=== PATIENT | female | born 1945 | race Caucasian/White ===

== ENCOUNTER → 2017-02-12 | Outpatient (CLI) | payer MEDICARE ==
[2017-02-12 10:01] LABS: HDL CHOLESTEROL 45.3 MG/DL (40.0-60.0)
== END ==
LOC: PLAB 06:49
PROVIDERS: ATTEND Family Medicine
DX: E78.5 Hyperlipidemia, unspecified (principal); E03.2 Hypothyroidism due to medicaments and other exogenous substances; Z13.1 Encounter for screening for diabetes mellitus; Z68.26 Body mass index [BMI] 26.0-26.9, adult
CPT/HCPCS: 36415; 80061; 82947; 84443; 84450; 84460

== ENCOUNTER → 2017-07-20 | Outpatient (CLI) | payer MEDICARE ==
[~2017-07-20] MED LIST: CITRTAB7 PO; LEVO88TA2 PO; LOVA20TA PO
[2017-07-20 14:22] LABS: HEMATOCRIT 44.7 % (35.0-46.0); MEAN CELL VOLUME 85.8 FL (80.0-100.0); MEAN CORPUSCULAR HEMOGLOBIN 27.8 PG (27.0-34.0); MEAN CORPUSCULAR HGB CONC 32.4 % (32.0-36.0); PLATELET COUNT 178 TH/MM3 (150-450); RED BLOOD COUNT 5.22 MIL/MM3 (4.00-5.30); REVIEW FLAG FINAL; WHITE BLOOD COUNT 8.8 TH/MM3 (4.0-11.0)
--- NOTE | 2017-07-20 14:27 | RADRPT ---
EXAM DATE/TIME: 07/20/2017 14:01 [facility] COMPARISON: No previous studies available for comparison. INDICATIONS : Pre op to evaluate for pneumothroax, pneumonia, or comminicable diseases. MEDICAL HISTORY : None. SURGICAL HISTORY : None. ENCOUNTER: Initial ACUITY: 1 day PAIN SCORE: 0/10 LOCATION: Bilateral chest FINDINGS: PA and lateral views of the chest demonstrate the lungs to be symmetrically aerated without evidence of mass, infiltrate or effusion. The cardiomediastinal contours are unremarkable. Osseous structure s are intact. CONCLUSION: 1. No acute cardiopulmonary findings. Yobani Almonte MD on July 20, 2017 at 14:21 Board Certified Radiologist. This report was verified electronically.
[2017-07-20 14:30] LABS: BLOOD, URINE NEG (NEG); GLUCOSE,URINE NEG (NEG); KETONE, URINE NEG (NEG); NITRITE,URINE NEG (NEG); PH, URINE 6.5 (5.0-8.5); TRANSITIONAL EPI CELLS, URINE <1 /hpf; URINE COLOR LIGHT-YELLOW (YELLW/STRAW)
[2017-07-20 14:45] LABS: ANION GAP 6 MEQ/L (5-15); AST (GOT) 16 U/L (15-37); BICARBONATE 29.5 MEQ/L (21.0-32.0); BLOOD UREA NITROGEN 13 MG/DL (7-18); CHLORIDE 105 MEQ/L (98-107); GLOMERULAR FILTRATION RATE 71 ML/MIN (>89); GLUCOSE,FASTING 97 MG/DL (74-99); POTASSIUM 4.5 MEQ/L (3.5-5.1); SODIUM (NA) 140 MEQ/L (136-145)
[2017-07-20 14:46] LABS: ALT (GPT) 23 U/L (10-53)
[2017-07-20 14:48] LABS: ALKALINE PHOSPHATASE 88 U/L (45-117); TOTAL BILIRUBIN ADULT 0.4 MG/DL (0.2-1.0)
--- NOTE | 2017-07-21 14:16 | EKG ---
Date Performed: 07/20/2017 Time Performed: 13:15:57 PTAGE: 72 years EKG: Sinus rhythm NORMAL ECG NO PREVIOUS TRACING DOCTOR: Chaparro Silva Interpretating Date/Time 07/21/2017 14:12:16
== END ==
LOC: CPRE 12:53
PROVIDERS: ATTEND Obstetrics & Gynecology
DX: Z01.812 Encounter for preprocedural laboratory examination (principal); Z01.810 Encounter for preprocedural cardiovascular examination; Z01.811 Encounter for preprocedural respiratory examination; N95.0 Postmenopausal bleeding; D06.9 Carcinoma in situ of cervix, unspecified; R87.613 High grade squamous intraepithelial lesion on cytologic smear of cervix (HGSIL)
CPT/HCPCS: 36415; 71020; 80053; 81001; 85027; 93005

== ENCOUNTER → 2017-07-29 | Day surgery (SDC) | payer MEDICARE ==
[~2017-07-29] VITALS: Ht 167.6 cm; Wt 71.9 kg
[~2017-07-29] MED LIST changes: +ACETAMINOPHEN 1000 MG/100 ML 0 ML IV ONE; +ACETAMINOPHEN 1000 MG/100 ML 100 ML IV ONE; +CHLORHEXIDINE GLUCONATE 2 % 1 PACK (2 CLOTHS) TOPICAL PRN; +DEXAMETHASONE SOD PHOS 4 MG/ML VIAL IV ONE; +DEXAMETHASONE SOD PHOS 4 MG/ML VIAL ONE; +DO NOT ADM ANY ANTICOAGULANT DRUGS PRN; +FAMOTIDINE 20 MG/2 ML VIAL ONE; +INSULIN HUMAN REGULAR 1,000 UNITS/10 ML VIAL SQ PRN; +KETOROLAC TROMETHAMINE 60 MG/2 ML (IM) VIAL IM ONE; +LACTATED RINGER'S 1000 ML INJ 1,000 ML IV ONE; +LACTATED RINGER'S 1000 ML IV PRN; +LIDOCAINE HCL 1% PF 5 ML AMPULE OTHER ONE; +METOPROLOL TARTRATE 25 MG TAB PO PRN; +MIDAZOLAM HCL 2 MG/2 ML VIAL IV ONE; +ONDANSETRON HCL 4 MG/2 ML VIAL IV PUSH ONE; +POVIDONE IODINE 5% (ANTISEPSIS KIT) 4 APPLICATIONS EACH NARE PRN; +PROPOFOL 200 MG/20 ML AMP IV ONE; +SODIUM CHLORID 0.9% 500 ML IV PRN; +ePHEDrine/NS 25 MG/5 ML SYR IV ONE
[2017-07-29 12:10] VITALS: BP 136/69; PULSE 64; RESP 18; TEMP 97.5; O2SAT 96
--- NOTE | 2017-07-29 16:58 | MP ---
cc: GLADYS MOYER DATE OF SURGERY: 07/29/2017 PREOPERATIVE DIAGNOSIS: Severe dysplasia of the endocervix. Postmenopausal bleeding. POSTOPERATIVE DIAGNOSIS: Severe dysplasia of the endocervix. Postmenopausal bleeding. OPERATION: Examination under anesthesia, cone biopsy, dilation and curettage of the uterus. ANESTHESIA: General endotracheal intubation. SURGEON: Julia Moyer MD. FINDINGS: Examination under anesthesia, the vagina was atrophic. The cervix was small and atrophic. The uterus and adnexa were not palpable. The cone biopsy was done with good results. We got a nice circumferential cone. ECC and D&C followed with a small amount of tissue. My suspicion for pathology is low. COMPLICATIONS: None. COUNTS: Correct. ESTIMATED BLOOD LOSS: 25 cc FLUIDS: Crystalloid. DISPOSITION: The patient tolerated the procedure well and went to the Recovery Room in good condition. DESCRIPTION OF PROCEDURE: Patient was taken to the operating room identified by name band and verbally, given a general anesthetic, carefully placed in dorsal lithotomy position, prepped on the outside only and draped in the usual sterile fashion for vaginal surgery. A time-out was taken and examination under anesthesia was carried out and the speculum was inserted. Very carefully we cleaned out the vagina with Betadine and a cotton ball not to damage the surface of the cervix. Once this had been accomplished two lateral stay sutures were placed with 2-0 Vicryl and the cone biopsy was then taken using 11 blade starting at 6 o'clock and going circumferentially around to noon bilaterally and the cone was removed with scissors without difficulty. ECC was then done with good firm curettage. The cervix was then serially dilated without difficulty and a D&C was performed with a #1 sharp curet. There was very little tissue. My suspicion for pathology was very low. At this point we cauterized the cone bed with the Bovie and bleeding was minimal at this time. A baseball suture was placed around the cervix and bleeding was minimal at this point. A piece of Surgicel was then placed into the cone bed and the Surgicel was tied into the cone beds without difficulty. The patient tolerated the procedure well and went to the Recovery Room in good condition. RMD ROSS Melgoza/KEVEN /1:09 PM /4:02 PM
== END | disposition home or self-care (01) ==
LOC: HSDC 07:39
PROVIDERS: ATTEND Obstetrics & Gynecology
DX: D06.9 Carcinoma in situ of cervix, unspecified (principal); N95.0 Postmenopausal bleeding
CPT/HCPCS: 00940; 57520; 88305; 88307; J0131; J1100; J1885; J2250; J2405; J3010; J7120

== ENCOUNTER → 2017-08-20 | Outpatient (CLI) | payer MEDICARE ==
[~2017-08-20] MED LIST changes: -ACETAMINOPHEN 1000 MG/100 ML 0 ML IV ONE; -ACETAMINOPHEN 1000 MG/100 ML 100 ML IV ONE; -CHLORHEXIDINE GLUCONATE 2 % 1 PACK (2 CLOTHS) TOPICAL PRN; -DEXAMETHASONE SOD PHOS 4 MG/ML VIAL IV ONE; -DEXAMETHASONE SOD PHOS 4 MG/ML VIAL ONE; -DO NOT ADM ANY ANTICOAGULANT DRUGS PRN; -FAMOTIDINE 20 MG/2 ML VIAL ONE; -INSULIN HUMAN REGULAR 1,000 UNITS/10 ML VIAL SQ PRN; -KETOROLAC TROMETHAMINE 60 MG/2 ML (IM) VIAL IM ONE; -LACTATED RINGER'S 1000 ML INJ 1,000 ML IV ONE; -LACTATED RINGER'S 1000 ML IV PRN; -LIDOCAINE HCL 1% PF 5 ML AMPULE OTHER ONE; -METOPROLOL TARTRATE 25 MG TAB PO PRN; -MIDAZOLAM HCL 2 MG/2 ML VIAL IV ONE; -ONDANSETRON HCL 4 MG/2 ML VIAL IV PUSH ONE; -POVIDONE IODINE 5% (ANTISEPSIS KIT) 4 APPLICATIONS EACH NARE PRN; -PROPOFOL 200 MG/20 ML AMP IV ONE; -SODIUM CHLORID 0.9% 500 ML IV PRN; -ePHEDrine/NS 25 MG/5 ML SYR IV ONE
[2017-08-20 10:42] LABS: HDL CHOLESTEROL 48.3 MG/DL (40.0-60.0)
== END ==
LOC: PLAB 06:51
PROVIDERS: ATTEND Family Medicine
DX: E78.5 Hyperlipidemia, unspecified (principal); E03.2 Hypothyroidism due to medicaments and other exogenous substances
CPT/HCPCS: 36415; 80061; 84443; 84450; 84460

== ENCOUNTER → 2018-02-16 | Outpatient (CLI) | payer MEDICARE ==
[2018-02-16 10:56] LABS: CHOLESTEROL/ HDL RATIO 3.46 RATIO; HDL CHOLESTEROL 44.7 MG/DL (40.0-60.0)
== END ==
LOC: PLAB 06:39
PROVIDERS: ATTEND Family Medicine
DX: E78.5 Hyperlipidemia, unspecified (principal); E03.2 Hypothyroidism due to medicaments and other exogenous substances; Z12.12 Encounter for screening for malignant neoplasm of rectum; Z12.11 Encounter for screening for malignant neoplasm of colon; Z13.1 Encounter for screening for diabetes mellitus; Z68.26 Body mass index [BMI] 26.0-26.9, adult
CPT/HCPCS: 36415; 80061; 82947; 84443; 84450; 84460

== ENCOUNTER → 2018-03-01 | Outpatient (CLI) | payer MEDICARE ==
[2018-03-01 13:38] LABS: BACTERIA, URINE RARE /hpf; BILIRUBIN, URINE NEG (NEG); BLOOD, URINE NEG (NEG); GLUCOSE,URINE NEG (NEG); KETONE, URINE NEG (NEG); MUCUS URINE FEW /lpf (OCC); NITRITE,URINE NEG (NEG); SQUAMOUS EPITHELIAL CELL URINE <1 /hpf (0-5); URINE COLOR LIGHT-YELLOW (YELLW/STRAW); URINE LEUKOCYTE ESTERASE NEG (NEG)
[2018-03-01 13:48] LABS: HEMOGLOBIN 14.6 GM/DL (11.6-15.3); MEAN CORPUSCULAR HEMOGLOBIN 28.4 PG (27.0-34.0); MEAN CORPUSCULAR HGB CONC 33.8 % (32.0-36.0); PLATELET COUNT 209 TH/MM3 (150-450); RED BLOOD COUNT 5.12 MIL/MM3 (4.00-5.30); RED CELL DISTRIBUTION WIDTH 13.5 % (11.6-17.2); WHITE BLOOD COUNT 8.2 TH/MM3 (4.0-11.0)
[2018-03-01 14:01] LABS: ALBUMIN 4.1 GM/DL (3.4-5.0); AST (GOT) 18 U/L (15-37); BICARBONATE 27.9 MEQ/L (21.0-32.0); BLOOD UREA NITROGEN 15 MG/DL (7-18); CALCIUM 9.6 MG/DL (8.5-10.1); CHLORIDE 105 MEQ/L (98-107); CREATININE 0.86 MG/DL (0.50-1.00); GLOMERULAR FILTRATION RATE 65 ML/MIN (>89); GLUCOSE,FASTING 102 MG/DL (74-99); SODIUM (NA) 142 MEQ/L (136-145)
[2018-03-01 14:02] LABS: ALT (GPT) 24 U/L (10-53)
[2018-03-01 14:04] LABS: ALKALINE PHOSPHATASE 88 U/L (45-117); TOTAL BILIRUBIN ADULT 0.4 MG/DL (0.2-1.0); TOTAL PROTEIN 7.7 GM/DL (6.4-8.2)
--- NOTE | 2018-03-01 14:17 | RADRPT ---
EXAM DATE/TIME: 03/01/2018 13:57 [facility] COMPARISON: CHEST PA & LAT, July 20, 2017, 14:01. INDICATIONS : Preop Hysterectomy Evaluate for pneumonia, pneumothorax and communicable disease MEDICAL HISTORY : None. SURGICAL HISTORY : None. ENCOUNTER: Initial ACUITY: 1 day PAIN SCORE: 0/10 LOCATION: chest FINDINGS: Frontal and lateral views of the chest demonstrate a normal-sized cardiac silhouette with calcificati on of the aorta. No effusion, consolidation, or pneumothorax is identified. Bones and soft tissues de monstrate no acute finding. There are degenerative changes throughout the thoracic and lumbar spine w ith a levoscoliosis of the lumbar spine. CONCLUSION: 1. No acute cardiopulmonary abnormality is identified. 2. Levoscoliosis of the lumbar spine. Dylan Swartz MD on March 01, 2018 at 14:14 Board Certified Radiologist. This report was verified electronically.
--- NOTE | 2018-03-01 16:32 | EKG ---
Date Performed: 03/01/2018 Time Performed: 13:23:30 PTAGE: 72 years EKG: Sinus rhythm INDETERMINATE AXIS No significant change from prior electrocardiogram. DOCTOR: James Rubin Interpretating Date/Time 03/01/2018 16:31:17
== END ==
LOC: CPRE 12:52
PROVIDERS: ATTEND Obstetrics & Gynecology
DX: Z01.812 Encounter for preprocedural laboratory examination (principal); Z01.811 Encounter for preprocedural respiratory examination; Z01.810 Encounter for preprocedural cardiovascular examination; D06.9 Carcinoma in situ of cervix, unspecified
CPT/HCPCS: 36415; 71046; 80053; 81001; 85027; 93005

== ENCOUNTER 2018-03-10 08:48 | Observation (INO) | payer MEDICARE ==
[~2018-03-10] VITALS: Ht 167.6 cm; Wt 72.4 kg
[2018-03-10] MEDS ORDERED: LACTATED RINGER'S 1000 ML IV PRN (09:30)
[2018-03-10] MEDS ORDERED: POVIDONE IODINE 5% (ANTISEPSIS KIT) 4 APPLICATIONS EACH NARE PRN (09:30)
[2018-03-10] MEDS ORDERED: CHLORHEXIDINE GLUCONATE 2 % 1 PACK (2 CLOTHS) TOPICAL PRN (09:30)
[2018-03-10] MEDS ORDERED: SODIUM CHLORID 0.9% 500 ML IV PRN (09:30)
[2018-03-10] MEDS ORDERED: METOPROLOL TARTRATE 25 MG TAB PO PRN (09:30)
[2018-03-10] MEDS ORDERED: GLYCOPYRROLATE 1 MG/5 ML SYRINGE IV PUSH ONE (10:00)
[2018-03-10] MEDS ORDERED: DEXAMETHASONE SOD PHOS 4 MG/ML VIAL IV ONE (10:00)
[2018-03-10] MEDS ORDERED: LIDOCAINE HCL 1% PF 5 ML SYRINGE OTHER ONE (10:00)
[2018-03-10] MEDS ORDERED: ePHEDrine/NS 25 MG/5 ML SYRINGE IV ONE (10:00)
[2018-03-10] MEDS ORDERED: PROPOFOL 200 MG/20 ML AMP IV ONE (10:00)
[2018-03-10] MEDS ORDERED: ROCURONIUM INJ 50 MG/5 ML SYRINGE IV PUSH ONE (10:00)
[2018-03-10] MEDS ORDERED: NEOSTIGMINE 5 MG/5 ML SYRINGE IV PUSH ONE (10:00)
[2018-03-10] MEDS ORDERED: PHENYLEPH/NS 1000 MCG/10 ML SYR IV ONE (10:00)
[2018-03-10] MEDS ORDERED: ONDANSETRON HCL 4 MG/2 ML VIAL IV PUSH ONE (10:00)
[2018-03-10] MEDS ORDERED: APREPITANT 40 MG CAP ONE (10:52)
[2018-03-10] MEDS ORDERED: SODIUM CHLORIDE 0.9% INJ 100 ML ONE (11:10)
[2018-03-10] MEDS ORDERED: ceFAZolin INJ 1,000 MG VIAL ONE (11:10)
[2018-03-10] MEDS ORDERED: ACETAMINOPHEN 1000 MG/100 ML 100 ML IV ONE (11:35)
[2018-03-10] MEDS ORDERED: APREPITANT 40 MG CAP PO ONE (12:45)
[2018-03-10] MEDS: LACTATED RINGER'S 1000 ML INJ 1,000 ML IV SCH ×2 (14:08→22:08)
[2018-03-10] MEDS ORDERED: IBUPROFEN 600 MG TAB PO PRN (14:15)
[2018-03-10] MEDS ORDERED: ONDANSETRON HCL 4 MG/2 ML VIAL IVP PRN (14:15)
[2018-03-10] MEDS ORDERED: oxyCODONE/ACETAMINOPHEN 5 MG/325 MG TAB PO PRN ×2 (14:15)
[2018-03-10] MEDS: DOCUSATE SODIUM 100 MG CAP PO SCH (14:15)
[2018-03-10] MEDS ORDERED: SODIUM CHLORIDE 0.9% FLUSH 10 ML FLUSH IV FLUSH PRN (14:15)
[2018-03-10] MEDS ORDERED: DO NOT ADM ANY ANTICOAGULANT DRUGS PRN (14:30)
--- NOTE | 2018-03-10 14:52 | MP ---
cc: Julia Moyer MD DATE OF OPERATION: 03/10/2018 PREOPERATIVE DIAGNOSIS: High grade dysplasia of the cervix, status post cone biopsy. POSTOPERATIVE DIAGNOSES: 1. High grade dysplasia of the cervix, status post cone biopsy. 2. Pelvic adhesions. PROCEDURE PERFORMED: Laparoscopic-assisted vaginal hysterectomy, lysis of adhesions, partial right oophorectomy. ANESTHESIA: General endotracheal intubation. SURGEON: Julia Moyer MD FINDINGS: Examination under anesthesia: The vagina was clean. The cervix was flush with the vagina. There was no gross lesions. The bimanual revealed a normal-sized, small uterus with no adnexal masses. The laparoscopic exam revealed moderate pelvic adhesions posteriorly. The left posterior cul-de-sac was almost completely obliterated with adhesions. Both ovaries were firmly adhesed to the pelvic sidewall and I was unable to remove them. The fallopian tubes were normal in length and caliber. The uterus was small and atrophic. The anterior cul-de-sac was clean. COMPLICATIONS: None. COUNTS: Correct. ESTIMATED BLOOD LOSS: 100 mL. FLUIDS: Crystalloids. CONDITION: The patient tolerated the procedure well and went to the recovery room in good condition. OPERATIVE PROCEDURE: The patient was taken to the operating room, identified by name band and verbally, given a general anesthetic, carefully placed in dorsal lithotomy position with great care to avoid any back injury or leg injuries. At this point, she was prepped and draped in the usual sterile manner for laparoscopic vaginal surgery. Timeout was taken. A Gómez catheter was inserted and the examination under anesthesia was carried out with the above findings. A weighted speculum was placed in the vagina. The anterior lip of the cervix was grasped with a single-tooth tenaculum. The cervix needed to be serially dilated to accept the Hulka clamp and the Hulka clamp was placed and attention was turned to the umbilical area. A small subumbilical incision was made and, with a 5 mm trocar, the abdomen was entered under direct vision without difficulty. The pneumoperitoneum was created with 3 liters of CO2. Inferior lateral to the umbilicus bilaterally we placed 2 more 5 mm ports under direct vision without difficulty. We took down the posterior adhesions with the harmonic scalpel. There was an awful lot of these especially around the ovaries. The fallopian tube was also plastered there and we had to take that down as well. Once we had taken all those adhesions down, we began with the round ligaments bilaterally, taking those down and creating a bladder flap, superficially just taking down the peritoneum. We began on the left side, we grabbed the fimbriated end of the tube. Again, there were a lot of adhesions around the fimbriated end of the tube and the ovary. We did transect that ovary because I could not get that ovary off the pelvic sidewall. I took down the mesosalpinx and the broad ligament to the level of the internal cervical os and then we took that uterine vessel. Attention was turned to the right side. That ovary was really plastered, I could not even get a piece of it out of there, so we took the fallopian tube and took down the mesosalpinx, and then we took the broad ligament down to the level of the internal cervical os. Again, we took the uterine vessels. At this time, the bladder flap was then more fully developed and pushed well out of harm's way. Once this had been accomplished, we took the cardinal ligament down off of the cervix staying very close to the cervix until the vaginal-cervical junction was obtained. At this point, we coagulated the small bleeders with the Kleppinger forceps and we went below. The cervix was very well suspended and we made a circumferential incision around the cervix with the Bovie and then took the remainder down with the scissors and the specimen was delivered through the vagina without difficulty. At this point, we took the peritoneum and closed the peritoneum with 0 Vicryl pop-offs. Then, we took the remainder of the vaginal cuff, and closed the cuff with 0 Vicryl in an interrupted fashion with excellent results. Hemostasis was excellent. The instruments were removed from the vagina and a sponge stick was placed. We went back up to the laparoscope and examined the surgical edges. There was some bleeding from the left vaginal cuff and we used a little bit of Fannie in this area. It was perfectly dry at this point. There was a little bleeding off the left portion of the ovary as well and that was taken care of with the Kleppinger forceps. At this point, everything was dry. We watched her for several minutes. Everything looked good. We irrigated and cleaned up the pelvis and then we removed the laparoscope under direct vision. The air was released through the second and third puncture and the skin incisions were repaired with 4-0 Monocryl in subcuticular manner. She tolerated the procedure well, went to the recovery room in good condition and will be staying overnight. R. Dylan Moyer MD RJKumar/RENAE , 02:21 PM , 02:51 PM
[2018-03-10 15:45] VITALS: BP 151/67; PULSE 57; RESP 18; TEMP 98.2; O2SAT 96
[2018-03-10] MEDS: LEVOTHYROXINE SODIUM 88 MCG TAB PO SCH (18:00)
[2018-03-10 20:00] VITALS: BP 120/56; PULSE 80; RESP 16; TEMP 97.4; O2SAT 95
[2018-03-10] MEDS: SODIUM CHLORIDE 0.9% FLUSH 10 ML FLUSH IV FLUSH SCH (21:00)
[2018-03-11 01:00] VITALS: BP 125/63; PULSE 77; RESP 17; TEMP 98.1
[2018-03-11 05:00] VITALS: BP 128/65; PULSE 65; RESP 18; TEMP 97.7; O2SAT 95
[2018-03-11 05:56] LABS: AUTOMATED NEUTROPHIL # 9.8 TH/MM3 (1.8-7.7); BASOPHIL % 0.1 % (0.0-2.0); HEMATOCRIT 40.7 % (35.0-46.0); HEMOGLOBIN 13.5 GM/DL (11.6-15.3); LYMPH % 11.8 % (9.0-44.0); LYMPHOCYTE # 1.4 TH/MM3 (1.0-4.8); MEAN CELL VOLUME 84.5 FL (80.0-100.0); MEAN CORPUSCULAR HEMOGLOBIN 28.1 PG (27.0-34.0); MEAN CORPUSCULAR HGB CONC 33.2 % (32.0-36.0); MEAN PLATELET VOLUME 9.5 FL (7.0-11.0); MONO % 6.8 % (0.0-8.0); MONOCYTE # 0.8 TH/MM3 (0-0.9); NEUT % 81.3 % (16.0-70.0); PLATELET COUNT 202 TH/MM3 (150-450); RED BLOOD COUNT 4.81 MIL/MM3 (4.00-5.30); RED CELL DISTRIBUTION WIDTH 13.5 % (11.6-17.2); WHITE BLOOD COUNT 12.1 TH/MM3 (4.0-11.0)
[2018-03-11] MEDS ORDERED: LEVOTHYROXINE SODIUM 88 MCG TAB PO SCH (06:00)
[2018-03-11] MEDS: LACTATED RINGER'S 1000 ML INJ 1,000 ML IV SCH (06:08)
[2018-03-11 06:26] LABS: BICARBONATE 28.2 MEQ/L (21.0-32.0); CALCIUM 8.9 MG/DL (8.5-10.1); CREATININE 0.81 MG/DL (0.50-1.00)
[2018-03-11] MEDS: DOCUSATE SODIUM 100 MG CAP PO SCH (06:37)
[2018-03-11] MEDS: LEVOTHYROXINE SODIUM 88 MCG TAB PO SCH (06:37)
[2018-03-11] MEDS: SODIUM CHLORIDE 0.9% FLUSH 10 ML FLUSH IV FLUSH SCH (07:26)
[2018-03-11 08:00] VITALS: BP 135/67; PULSE 70; RESP 18; TEMP 98.3; O2SAT 94
--- NOTE | 2018-03-11 08:16 | HHI.PR ---
Subjective Remarks Doing well, pain is well controlled, eating well. No chest pain or pressure Ready to go home Voided and flatus this am Objective Vital Signs Vital Signs Date Time Temp Pulse Resp B/P (MAP) Pulse Ox O2 Delivery O2 Flow Rate FiO2 03/11/18 08:00 98.3 70 18 135/67 (89) 94 03/11/18 05:00 97.7 65 18 128/65 (86) 95 03/11/18 01:00 98.1 77 17 125/63 (83) 03/10/18 20:00 97.4 80 16 120/56 (77) 95 03/10/18 15:45 98.2 57 18 151/67 (95) 96 03/10/18 15:40 Nasal Cannula 2 03/10/18 15:30 97.8 56 18 116/57 (76) 97 Nasal Cannula 2 03/10/18 15:15 46 17 135/63 (87) 99 Nasal Cannula 2 03/10/18 15:00 53 17 129/60 (83) 96 Nasal Cannula 2 03/10/18 14:45 59 17 126/63 (84) 96 Nasal Cannula 2 03/10/18 14:27 97.8 64 17 122/58 (79) 96 Nasal Cannula 2 03/10/18 10:32 98.2 78 20 158/74 (102) 97 I/O 03/10/18 03/10/18 03/10/18 03/11/18 03/11/18 03/11/18 07:00 15:00 23:00 07:00 15:00 23:00 Intake Total 1600 ml 100 ml 240 ml Output Total 550 ml 30 ml 3250 ml 600 ml Balance 1050 ml 70 ml -3250 ml -360 ml Intake Oral 240 ml IV Total 1600 ml 100 ml Output Urine Total 450 ml 30 ml 3250 ml 600 ml Estimated Blood Loss 100 ml # Sanitary Pads 1 Pads Result Diagram: 03/11/18 0500 03/11/18 0500 Objective Remarks Chest is clear, regular rate and rhythm. Abdomen is soft and non-distended. Incision is clean and dry. Ext no CCE. A/P Assessment and Plan Post Op Day 1 Doing well Home today and return to office in two weeks. Julia Moyer MD March 11, 2018 08:16
--- NOTE | 2018-03-11 08:53 | HHI.DCPOC ---
Discharge Care Plan Diagnosis: (1) Status post laparoscopic assisted vaginal hysterectomy Report Symptoms to Your Doctor -Temperature above 100.5 degrees -Redness, of incision or excessive or foul smelling drainage -Unusual pain or calf pain -Increased vaginal bleeding -Painful or difficulty urinating -Feelings of extreme sadness or anxiety after 2 weeks Goals to Promote Your Health * To prevent worsening of your condition and complications * To maintain your health at the optimal level Directions to Meet Your Goals Take your medications as prescribed Follow your dietary instruction Follow activity as directed Ensure plenty of rest for recovery Drink fluids for hydration Keep your appointments as scheduled Take your immunizations and boosters as scheduled If your symptoms worsen call your PCP, if no PCP go to Urgent Care Center or Emergency Room Smoking is Dangerous to Your Health. Avoid second hand smoke Call the 24-hour crisis hotline for domestic abuse at Susi Curry March 11, 2018 08:53
== END 2018-03-11 10:01 | disposition home or self-care (01) ==
LOC: HSDC 08:48 → HSDI 14:11 → H1EA 15:46
PROVIDERS: ADMIT Obstetrics & Gynecology; ATTEND Obstetrics & Gynecology
DX: D06.7 Carcinoma in situ of other parts of cervix (principal); D07.2 Carcinoma in situ of vagina; N73.6 Female pelvic peritoneal adhesions (postinfective); D25.1 Intramural leiomyoma of uterus; E78.5 Hyperlipidemia, unspecified; E03.9 Hypothyroidism, unspecified; M85.80 Other specified disorders of bone density and structure, unspecified site; E66.9 Obesity, unspecified; Z87.891 Personal history of nicotine dependence
CPT/HCPCS: 00790; 49329; 58552; 80048; 85025; 86850; 86900; 86901; 88309; 94150; G0378; J0131; J0690; J1100; J2370; J2405; J2710; J3010; J7120; 88307; J8501